=== PATIENT | male | born 1955 | race Caucasian/White ===

== ENCOUNTER 2018-03-08 15:26 | Inpatient (IN) ==
[2018-03-09] MEDS: Morphine Sulfate Inj 2 MG/ML Vial IV.PUSH PRN ×6 (00:30→20:44)
[2018-03-09 06:43] LABS: Eos # (Auto) 0.1 th/mm3 (0.0-0.4); Hematocrit 40.2 % (39.0-51.0); Hemoglobin 13.4 gm/dL (13.0-17.0); Lymph # (Auto) 0.7 th/mm3 (1.0-4.8); Lymph % (Auto) 17.6 % (9.0-44.0); Mean Corpuscular HGB Conc 33.3 % (32.0-36.0); Mean Corpuscular Hemoglobin 31.3 pg (27.0-34.0); Mean Corpuscular Volume 94.1 fL (80.0-100.0); Mean Platelet Volume 7.2 fL (7.0-11.0); Mono # (Auto) 0.6 th/mm3 (0.0-0.9); Mono % (Auto) 13.5 % (0.0-8.0); Neut # (Auto) 2.8 th/mm3 (1.8-7.7); Neut % (Auto) 65.9 % (16.0-70.0); Platelet Count 105 th/mm3 (150-450); Red Blood Count 4.28 mil/mm3 (4.50-5.90); Red Cell Distribution Width 15.4 % (11.6-17.2); White Blood Count 4.2 th/mm3 (4.0-11.0)
[2018-03-09 06:52] LABS: Chloride 106 meq/L (98-107); Potassium 3.6 meq/L (3.5-5.1); Sodium 140 meq/L (136-145)
[2018-03-09 07:20] LABS: Alanine Aminotransferase 48 U/L (12-78); Albumin 2.3 g/dL (3.4-5.0); Alkaline Phosphatase 105 U/L (45-117); Anion Gap 9 meq/L (5-15); Aspartate Aminotransferase 91 U/L (15-37); Blood Urea Nitrogen 8 mg/dL (7-18); Calcium 7.3 mg/dL (8.5-10.1); Carbon Dioxide 25.5 meq/L (21.0-32.0); Glomerular Filtration Rate Greater Than 89 mL/min (>89); Glucose,Random 78 mg/dL (74-106); Total Protein 6.7 g/dL (6.4-8.2)
--- NOTE | 2018-03-09 11:01 | P.HP ---
History of Present Illness Primary Care Physician: No Primary Care Physician Chief Complaint: Abdominal distention History of Present Illness: 63-year-old male with known history of hypertension who presented to the hospital for evaluation of abdominal distention. Patient states that for the last 2 weeks he has been experiencing progressive abdominal distention with discomfort. Approximately 3 weeks ago he started with upper respiratory infection with head cold and chest congestion then he thought he started developing a stomach flu because his belly started getting more painful and distended. Patient went to the emergency department for evaluation and found to have large ascites with cirrhosis, splenomegaly, gastroesophageal varices. Further laboratory studies do also concur with the radiological data with thrombocytopenia, mild coagulopathy, elevated liver enzymes. Patient denies any previous diagnosis of cirrhosis. He states that he has had a fatty liver for over. But is never been told that he has any form of cirrhosis. Patient does have a long history of alcohol consumption. He states that he did quit drinking 3 weeks ago when he started developing the upper respiratory symptoms. Patient does have history of hypertension but he has not on any medication at this time. Patient just recently moved to the area because of traveling and working. He states that he has settled down in [facility] at this time and will be here a while. Presently the patient does have abdominal distention with mild tenderness. He denies any shortness of breath, chest pain, lower extremity edema, urinary difficulties. - Diagnosis (1) Cirrhosis of liver with ascites Inpatient Certification: I certify that the inpatient services were ordered in accordance with Medicare regulations governing the order. This includes certification that hospital inpatient services are reasonable and necessary and in the case of services not specified as inpatient-only under 42 CFR 419.22(n), that they are appropriately provided as inpatient services in accordance to with the 2-midnight benchmark under 43 CFR 412.3(e) Estimated Total Length of Stay (Days): 2 Plans for Post Hospital Care: Home Review of Systems All other systems reviewed negative except as stated in HPI Gastrointestinal: Reports abdominal pain PMFSH - History History Provided By: Patient - Medical History Medical History: Medical History (Last Reviewed 03/09/18 @ 11:21 by RITA Hernandez) Hypertension Neck pain - Surgical History Surgical History: Surgical History (Last Reviewed 03/09/18 @ 11:21 by RITA Hernandez) Hx of hernia repair - Family History Family History: Family History (Last Updated 03/09/18 @ 11:11 by RITA Hernandez) Mother Family history of dementia Father Family history of coronary artery disease Family history of heart disease - Tobacco History Second Hand Smoke Exposure: Yes Tobacco Use In Past 30 Days: Yes Smoking Status: Current some day smoker Tobacco Type: Cigarettes Packs Per Day: 1 Years Smoked: 50 - Alcohol History How Often Do You Have a Drink Containing Alcohol: 4 or more times a week ( Patient states that he has not drink any alcohol in 3 weeks) - Substance Use History Substance History: Active Abuse - Substance Use Type Alcohol Status: Active Route Used: By Mouth Last Used: 2 weeks ago Reason for Use: Calm Down, Feels Good - Immunization History Tetanus Immunization: <5 Years Hx Influenza Vaccine This Season: No Medications and Allergies Active Medications: Active Medications Morphine Sulfate (Morphine Inj) 2 mg IV.PUSH Q3H PRN PRN Reason: pain scale 5 to 10 Last Admin: 03/09/18 10:23 Dose: 2 mg Allergies Allergy/AdvReac Type Severity Reaction Status Date / Time No Known Allergies Allergy Verified 03/08/18 15:51 Home Medications Medication Instructions Recorded Confirmed Type No Known Home Medications 03/08/18 03/08/18 History Exam Vital signs: Vital Signs 03/09/18 00:00 03/09/18 02:00 03/09/18 04:00 Temperature 97.9 F 98 F Pulse Rate 83 64 Respiratory Rate 18 18 20 Blood Pressure 174/88 H 160/90 H Pulse Oximetry 93 L 97 03/09/18 08:00 Temperature 97.6 F Pulse Rate 65 Respiratory Rate 17 Blood Pressure 166/84 H Pulse Oximetry 94 L Intake & Output 03/08/18 03/09/18 03/09/18 18:59 06:59 18:59 Weight 90.3 kg Other: # Voids 1 Date of Last Bowel Movement 03/07/18 03/08/18 Weight On Admission 90.7 kg Narrative: GENERAL: Well-developed, well-nourished, in no acute distress. alert and orientated HEENT: Head is normocephalic without any lesions or masses noted. Facial features are symmetric. Eyes: Pupils equal round reactive to light. Extraocular muscles are intact. Conjunctivae were clear. Oropharyngeal: Pharynx without any erythema edema. Tongue is midline without deviation. Buccal mucosa is moist without any masses or lesions NECK: Supple without any masses. Trachea midline no deviation. No JVD, no bruits are appreciated CARDIAC: Regular rhythm, regular rate. S1/S2 are heard. No murmurs gallops or rubs. LUNGS: Clear to auscultation bilaterally. No wheeze, rhonchi or rales. No use of accessory muscles on inspiration or expiration. ABDOMEN: Soft, nontender. Significantly distended abdomen with tympanic to percussion. Bowel sounds heard in all 4 quadrants. No organomegaly or masses. Negative rebound, negative guarding EXTREMITIES: No edema, pulses are equal bilaterally. No cyanosis or clubbing NEUROLOGY: Mood and affect appear appropriate. Cranial nerves II through XII grossly intact. Muscle strength 5/5 in upper and lower extremities bilaterally. Deep tendon reflexes are 2+ in upper and lower extremities bilaterally. Results - Labs CBC & Chem 7: 03/09/18 05:22 03/09/18 05:22 Labs: Laboratory Results - last 24 hr 03/09/18 03/09/18 05:22 05:22 CBC w Diff Auto diff final WBC 4.2 RBC 4.28 L Hgb 13.4 Hct 40.2 MCV 94.1 MCH 31.3 MCHC 33.3 RDW 15.4 Plt Count 105 L MPV 7.2 Neut % (Auto) 65.9 Lymph % (Auto) 17.6 [place] % (Auto) 13.5 H Eos % (Auto) 2.0 Baso % (Auto) 1.0 Neut # (Auto) 2.8 Lymph # (Auto) 0.7 L [place] # (Auto) 0.6 Eos # (Auto) 0.1 Baso # (Auto) 0.0 WBC Differential . Differential Comment . Sodium 140 Potassium 3.6 Chloride 106 Carbon Dioxide 25.5 Anion Gap 9 BUN 8 Creatinine 0.48 L Estimated GFR Greater than 89 Random Glucose 78 Calcium 7.3 L* Calcium Adj for Albumin 8.7 Total Bilirubin 3.1 H AST 91 H ALT 48 Alkaline Phosphatase 105 Total Protein 6.7 D Albumin 2.3 L Caprini VTE Risk Assessment Caprini VTE Risk Assessment: No/Low Risk (score <= 1) Caprini Risk Assessment Model: Point Value = 1 Point Value = 2 Point Value = 3 Point Value = 5 Age 41-60 Minor surgery BMI > 25 kg/m2 Swollen legs Varicose veins or History of unexplained or recurrent spontaneous Oral contraceptives or hormone replacement Sepsis (< 1 month) Serious lung disease, including pneumonia (< 1 month) Abnormal pulmonary function Acute myocardial infarction Congestive heart failure (< 1 month) History of inflammatory bowel disease Medical patient at bed rest Age 61-74 Arthroscopic surgery Major open surgery (> 45 min) Laparoscopic surgery (> 45 min) Malignancy Confined to bed (> 72 hours) Immobilizing plaster cast Central venous access Age >= 75 History of VTE Family history of VTE Factor V Leiden Prothrombin [id number] Lupus anticoagulant Anticardiolipin antibodies Elevated serum homocysteine Heparin-induced thrombocytopenia Other congenital or acquired thrombophilia Stroke (< 1 month) Elective arthroplasty Hip, pelvis, or leg fracture Acute spinal cord injury (< 1 month) Prophylaxis Regimen: Total Risk Factor Score Risk Level Prophylaxis Regimen 0-1 Low Early ambulation 2 Moderate Order ONE of the following: *Sequential Compression Device (SCD) *Heparin 5000 units SQ BID 3-4 Higher Order ONE of the following medications: *Heparin 5000 units SQ TID *Enoxaparin/Lovenox 40 mg SQ daily (WT < 150 kg, CrCl > 30 mL/min) *Enoxaparin/Lovenox 30 mg SQ daily (WT < 150 kg, CrCl > 10-29 mL/min) *Enoxaparin/Lovenox 30 mg SQ BID (WT < 150 kg, CrCl > 30 mL/min) AND/OR *Sequential Compression Device (SCD) 5 or more Highest Order ONE of the following medications: *Heparin 5000 units SQ TID (Preferred with Epidurals) *Enoxaparin/Lovenox 40 mg SQ daily (WT < 150 kg, CrCl > 30 mL/min) *Enoxaparin/Lovenox 30 mg SQ daily (WT < 150 kg, CrCl > 10-29 mL/min) *Enoxaparin/Lovenox 30 mg SQ BID (WT < 150 kg, CrCl > 30 mL/min) AND *Sequential Compression Device (SCD) Assessment and Plan - Assessment (1) Cirrhosis of liver with ascites Code(s): K74.60 - Unspecified cirrhosis of liver; R18.8 - Other ascites Status : Acute - Plan Cirrhosis with large amount of ascites -Patient indicates he does have a long history of fatty liver, chronic alcohol abuse -Workup indicating rather significant cirrhosis with CT findings, thrombocytopenia, liver enzyme elevation, mild coagulopathy -We will have ultrasound-guided paracentesis performed today with appropriate testing -We will obtain hepatitis profile -Consult GI for further recommendations and outpatient management Hypertension -We will start Inderal and spironolactone Urinary tract infection -Start Rocephin -Monitor culture for appropriate antibiotic DVT prevention -Sequential compression devices -Avoid chemical prophylaxis at this time due to patient will need procedure (1) Cirrhosis of liver with ascites Qualifiers: Hepatic cirrhosis type: unspecified hepatic cirrhosis Qualified Code(s): K74.60 - Unspecified cirrhosis of liver; R18.8 - Other ascites
[2018-03-09 11:46] LABS: Activated Partial Thrombo Time 31.4 sec (23.4-31.7); INR 1.4 Ratio; Prothrombin Time 13.7 sec (9.8-11.6)
[2018-03-09] MEDS: Spironolactone 50 MG Tablet PO SCH (12:35)
[2018-03-09] MEDS: Propranolol 10 MG Tablet PO SCH ×2 (12:35→20:44)
[2018-03-09 14:31] LABS: Hepatitits B Surface Antigen Nonreactive (Nonreactive)
[2018-03-09 14:49] LABS: Hepatitis A IgM Antibody Nonreactive (Nonreactive)
[2018-03-09] MEDS ORDERED: Albumin Human 25% Inj 150 ML IV.SIG ONE (16:00)
--- NOTE | 2018-03-09 16:10 | US ---
EXAM DATE: 03/09/2018 4:08 PM EST AGE/SEX: 63 years / Male INDICATIONS: Ascites. CLINICAL DATA: This is the patient's initial encounter. Patient reports that signs and symptoms have been present for 3 weeks and indicates a pain score of 8/10. MEDICAL/SURGICAL HISTORY: Hypertension. Neck pain. . Hernia repair. COMPARISON: . FLUID: Total volume of 6,400 cc of celia fluid was removed. Fluid was sent to lab for ordered studies. . . TECHNIQUE: Ultrasound guidance for abdominal paracentesis. Paracentesis. The risks, benefits, and alternatives to ultrasound guided paracentesis were explained to the patient in detail including the risk of bleeding and infection. Written and verbal informed consent was obt ained. With the patient on the ultrasound table, ultrasound imaging was used to select the most appropriate approach for paracentesis. Overlying skin was prepped and draped in the usual sterile fashion and wi th a local anesthetic, a dermatotomy was made with an 11 blade scalpel. A 6 [place] [id number] ca theter was introduced into the peritoneal cavity and fluid was collected. Post procedure scanning reveals no hematoma or other complication. The patient tolerated the procedu re well and left the ultrasound suite in stable condition. FINDINGS: Adequate fluid for paracentesis. CONCLUSION: 1. Uncomplicated paracentesis. Electronically signed by: Brady Sifuentes MD 03/09/2018 4:09 PM EST
[2018-03-09] MEDS: Albumin Human 25% Inj 50 ML IV.SIG SCH ×3 (16:40→17:15)
[2018-03-09 18:03] LABS: RBC,Peritoneal Fluid 3450 /mm3 (0-0)
[2018-03-09 18:04] LABS: Mesothelial,Peritoneal Fluid 21 %; Neutrophils,Peritoneal Fluid 26 %
--- NOTE | 2018-03-09 19:17 | MB ---
cc: Jericho Perla MD, Shahabuddin DO DATE: 03/09/2018 PATIENT OF: Robert Torres DO REASON FOR CONSULTATION: Abdominal distention, ascites, new onset liver cirrhosis. HISTORY OF PRESENT ILLNESS: Mr. Kidd is a 63-year-old gentleman who states previously has had no issues with his liver that he knows of. He has a 40+ year history of alcohol use. Basically, he presented because of progressive distention of his abdomen. A workup in the hospital revealed ascites and imaging consistent with liver cirrhosis. Workup has also shown hepatitis C antibody positive. He denies any previous knowledge of knowing about hepatitis C. He states his previous workup was about 2-3 years ago in [place] and he states nothing was mentioned about liver cirrhosis or hepatitis C at that time. REVIEW OF SYSTEMS: The patient is currently feeling better. He still has minimal abdominal pain, but states he is better after the paracentesis. No bleeding. No hematemesis or hematochezia. PAST MEDICAL HISTORY: Hypertension, neck pain, possible fatty liver. PAST SURGICAL HISTORY: Hernia repair, colonoscopy in the 70s. FAMILY HISTORY: Noncontributory. SOCIAL HISTORY: The patient is a smoker. He also drinks alcohol. He states he stopped about 3 weeks ago when he started feeling unwell. ALLERGIES: NONE DOCUMENTED. MEDICATIONS ON ADMISSION: None. PHYSICAL EXAMINATION: GENERAL: Reveals a well-nourished man in no apparent distress. VITAL SIGNS: Stable. HEAD AND NECK: Icteric sclerae. CHEST: Bilateral air entry with rales. ABDOMEN: Soft. Ascites is present. CENTRAL NERVOUS SYSTEM: Nonfocal. RECTAL: Deferred at this time. LABORATORY DATA: Reveal hemoglobin 13.4, platelets 105. INR 1.4. Creatinine 0.48, AST 91, total bilirubin 3.1, albumin 2.3. CT of the abdomen and pelvis revealed splenomegaly, liver cirrhosis and ascites. IMPRESSION: New onset ascites with liver cirrhosis. RECOMMENDATIONS: Await results of paracentesis. The patient has been started on Aldactone 50 mg daily. We will add Lasix 40 mg daily. Monitor renal functions. Low-sodium diet. I also recommended hepatitis C RNA, hepatitis C genotype and alpha fetoprotein levels. Further recommendations to depend upon the above. Thank you for this referral. MD Eddie Whitaker , 05:15 PM , 05:22 PM
[2018-03-09 21:29] LABS: Total Protein,Peritoneal Fluid 2.6 gm/dL
[2018-03-10] MEDS: Morphine Sulfate Inj 2 MG/ML Vial IV.PUSH PRN ×4 (00:02→09:45)
[2018-03-10] MEDS ORDERED: Furosemide 40 MG Tablet PO SCH (09:00)
[2018-03-10] MEDS: Propranolol 10 MG Tablet PO SCH (09:19)
[2018-03-10] MEDS: Spironolactone 50 MG Tablet PO SCH (09:19)
[2018-03-10 09:27] VITALS: BP 165/82; PULSE 53; RESP 16; TEMP 96.5; O2SAT 96
--- NOTE | 2018-03-10 10:55 | P.PNIM ---
Subjective Interval history: 63-year-old male who is seen examined today for follow-up on cirrhosis , hepatitis C, ascites. Patient did undergo paracentesis yesterday with removal of 6 L. Patient is feeling much better at this time. Patient very eager to go home. Patient denies any new complaints. Vital signs are stable. Patient remains afebrile. Physical Exam Vital signs: Vital Signs 03/09/18 12:00 03/09/18 15:29 03/09/18 15:54 Temperature 97.4 F L 99.7 F H 98.0 F Pulse Rate 80 60 62 Respiratory Rate 16 16 16 Blood Pressure 175/89 H 154/74 H 167/79 H Pulse Oximetry 96 94 L 95 03/09/18 18:19 03/09/18 20:00 03/10/18 00:00 Temperature 99.2 F 97.4 F L Pulse Rate 68 61 62 Respiratory Rate 18 18 Blood Pressure 149/79 H 143/76 H 152/67 H Pulse Oximetry 94 L 94 L 03/10/18 08:00 Temperature 96.5 F L Pulse Rate 53 L Respiratory Rate 16 Blood Pressure 165/82 H Pulse Oximetry 96 Intake & Output 03/09/18 03/10/18 03/10/18 18:59 06:59 18:59 Intake Total 1210 / 1210 Balance 1210 / 1210 Weight 85.7 kg Intake: IV 250 / 250 Flexbumin 25% Inj 50 ML @ 60 150 / 150 mls/hr IV.SIG Q50M JORDAN Rx#: [id number] Rocephin Inj 1,000 MG In NS Inj 100 / 100 100 ML @ 200 mls/hr IV.SIG Q24H JORDAN Rx#:[id number] Oral 960 / 960 Other: # Voids 6 4 Date of Last Bowel Movement 03/08/18 03/08/18 # Bowel Movements 0 Narrative: GENERAL: Well-developed, well-nourished, in no acute distress. alert and orientated HEENT: Head is normocephalic without any lesions or masses noted. Facial features are symmetric. Eyes: Extraocular muscles are intact. Conjunctivae were clear. NECK: Supple without any masses. Trachea midline no deviation. No JVD, CARDIAC: Regular rhythm, regular rate. S1/S2 are heard. No murmurs gallops or rubs. LUNGS: Clear to auscultation bilaterally. No wheeze, rhonchi or rales. No use of accessory muscles on inspiration or expiration. ABDOMEN: Soft, nontender. distended abdomen with tympanic to percussion. Bowel sounds heard in all 4 quadrants. No organomegaly or masses. Negative rebound, negative guarding EXTREMITIES: No edema, pulses are equal bilaterally. No cyanosis or clubbing NEUROLOGY: Mood and affect appear appropriate. Cranial nerves II through XII grossly intact. Moving all extremities, speech is clear Results - Labs CBC & Chem 7: 03/09/18 05:22 03/09/18 05:22 Laboratory Results - last 24 hr 03/09/18 03/09/18 03/09/18 05:22 11:20 11:20 PT 13.7 H INR 1.4 APTT 31.4 Lactate Dehydrogenase 171 Tumor Marker AFP Peritoneal RBC Periton Nuc Cells Periton Neutrophils Periton Lymphocytes Peritoneal Monocytes Periton Mesothelial Periton Histiocytes Peritoneal Tot Protein Peritoneal Albumin Peritoneal LDH Peritoneal Glucose Peritoneal Amylase Hepatitis A IgM Ab Nonreactive Hep Bs Antigen Nonreactive Hep B Core IgM Ab Nonreactive Hep C IgG Ab Reactive H 03/09/18 03/09/18 03/09/18 13:30 13:30 18:10 PT INR APTT Lactate Dehydrogenase Tumor Marker AFP 5.0 Peritoneal RBC 3450 H Periton Nuc Cells 351 H Periton Neutrophils 26 Periton Lymphocytes 45 Peritoneal Monocytes 4 Periton Mesothelial 21 Periton Histiocytes 4 Peritoneal Tot Protein 2.6 Peritoneal Albumin 1.2 Peritoneal LDH 153 Peritoneal Glucose 133 Peritoneal Amylase 12 Hepatitis A IgM Ab Hep Bs Antigen Hep B Core IgM Ab Hep C IgG Ab - Imaging Impressions Paracentesis Ultrasound 03/09/18 00:00 CONCLUSION: 1. Uncomplicated paracentesis. - Procedures 03/09/18: Patient underwent paracentesis Assessment and Plan - Assessment (1) Cirrhosis of liver with ascites Code(s): K74.60 - Unspecified cirrhosis of liver; R18.8 - Other ascites Status : Acute - Plan Cirrhosis with large amount of ascites -Patient indicates he does have a long history of fatty liver, chronic alcohol abuse -Workup indicating rather significant cirrhosis with CT findings, thrombocytopenia, liver enzyme elevation, mild coagulopathy -Patient underwent ultrasound-guided paracentesis with 6 L of fluid removed -Hepatitis panel was positive for hepatitis C, hepatitis C genotype and hepatitis C viral load were requested -Consult GI for further recommendations and outpatient management. Discussed with boat canvas maker and installer who recommended further testing and patient can be discharged with outpatient follow-up once further testing has been completed to determine outpatient management Hypertension -Continue Inderal, Lasix, spironolactone Urinary tract infection -Continue Rocephin -Monitor culture for appropriate antibiotic DVT prevention -Sequential compression devices -Avoid chemical prophylaxis at this time due to patient will need procedure Discharge Planning: Discharge home in stable condition Activity: Ad thalia. Diet: Healthy heart diet Medication per medication reconciliation Follow-up with primary medical doctor in 1 week (1) Cirrhosis of liver with ascites Qualifiers: Hepatic cirrhosis type: unspecified hepatic cirrhosis Qualified Code(s): K74.60 - Unspecified cirrhosis of liver; R18.8 - Other ascites
--- NOTE | 2018-03-10 11:33 | P.DIET ---
Nutritional Evaluation Type of nutrition evaluation: initial Nutrition screening: [facility] Screening comments: 03/09/18 [facility] Diet Education Subjective Subjective Comments: Pt provided w/Nutrition Education for Healthy Eating and Low Na. Objective - Diagnosis Cirrhosis w/Large Ascites and Splenomegaly - Objective % IBW: 118 Energy Needs - Lower Range (kCal/kg): 24 Energy Needs - Upper Range (kCal/kg): 29 Lower Limit kCal/kg (kCals): 2,057 Upper Limit kCal/kg (kCals): 2,485 Lower Limit Protein Factor (Grams per Kg): 1.1 Upper Limit Protein Factor (Grams per Kg): 1.4 Lower Protein Needs (Protein): 94 Upper Protein Needs (Protein): 120 Dietitian Reviewed in Medical Record: Current diet, Curent medications, Intake & Output, Labs, Medical history Diet Order: Regular Oral Diet Intake Amount: Good 75-90% Objective Comments: PMH includes HTN; newly diagnosed Cirrhosis of Liver w/Ascites s/p paracentesis 03/09/18 Meds include: Lasix, Aldactone Assessment Assessment: Pt is an [facility] for diet education. Pt is currently on a regular diet. Pt provided w/Nutrition education for Healthy Eating to meet assessed needs and low Na. Pt receptive to all information provided. RD contact info provided for additional questions as needed. Consider a MVM QD for pt w/h/o alcohol abuse. Dietitian to follow as needed. Recommendations: 1. Pt provided w/Nutrition education for Healthy Eating to meet assessed needs and low Na 2. Pt receptive to all information provided 3. RD contact info provided for additional questions as needed 4. Consider a MVM QD for pt w/h/o alcohol abuse 5. Dietitian to follow as needed
[2018-03-10 17:12] LABS: Anti-Nuclear Antibody Screen Pos (Neg)
[2018-03-12 19:51] LABS: Hepatitis C RNA (PCR) IUs/ml 103000 IU/mL; Hepatitis C RNA (PCR) log IUs 5.01
[2018-03-13 11:04] LABS: Anti-Nuclear Antibody Pattern Speckled
[2018-03-14 11:52] LABS: HCV Genotype 1a (Not Detecte)
== END 2018-03-10 12:38 | disposition home or self-care (01) ==
LOC: PHEDDLT 15:26 → PH3 22:02
PROVIDERS: ADMIT Internal Medicine; ATTEND Internal Medicine